=== PATIENT | male | born 1985 | race Caucasian/White ===

== ENCOUNTER 2022-11-11 08:04 | Emergency (ER) | payer OTHER, SELFPAY ==
[2022-11-11 08:11] VITALS: BP 144/89; PULSE 93; RESP 16; TEMP 36.8; O2SAT 100
--- NOTE | 2022-11-11 08:19 | ED.EYEPROB ---
HPI - Eye Problem General Chief complaint: Eye Problems Stated complaint: lt eye infection Time Seen by Provider: 11/11/22 08:26 Source: patient and RN notes reviewed Mode of arrival: ambulatory Limitations: no limitations History of Present Illness HPI Narrative: 37-year-old male presents concern for left eye itchiness, matting, green drainage that started on . Reports he has been using leftover antibiotic eyedrops from previous conjunctivitis without relief. He denies pain, vision changes. Reports he had a cold last week but those symptoms have resolved MD chief complaint: eye redness Related Data Home Medications Medication Instructions Recorded Confirmed polymyxin B sulfate 10,000 1 drp EACH EYE Q3H 11/11/22 11/11/22 unit-trimethoprim 1 mg/mL eye drops sertraline 25 mg tablet 25 mg PO DAILY 11/11/22 11/11/22 Allergies Allergy/AdvReac Type Severity Reaction Status Date / Time amoxicillin [From Amoxil] Allergy Unknown Verified 11/11/22 08:16 Review of Systems Review of Systems: CONSTITUTIONAL: Denies malaise, chills, sweats, or fever. EYES: Denies visual changes. Reports left eye redness, irritation, discharge. ENT: Denies rhinorrhea, congestion, sinus pain, otalgia or sore throat. SKIN: Denies rash or itching. NEUROLOGIC: Denies numbness, weakness, or headache. PSYCHIATRIC: Denies anxiety or depression. All systems reviewed & are unremarkable except as noted in HPI and below PMFSH Comments At time of signature, agree with nursing past medical, surgical, social and family history. There is no relevant family history pertinent to the presenting complaint Exam Narrative: GENERAL: Well-appearing, well-nourished, and in no acute distress. HEAD: Normocephalic, atraumatic. EYES: PERRLA, sclera clear, and EOMI. No nystagmus. Left sclera and conjunctivae injected. Mild left Upper and lower eyelid edema, right eyelids unremarkable, no periorbital edema noted ENT: Nares clear, turbinates pink, no rhinorrhea or epistaxis. Mucous membranes moist. TM pearly segal with sharp light reflex bilaterally; no tragal tenderness. NECK: Supple. CHEST: No respiratory distress. Speaks in full sentences. HEART: Regular rate and rhythm. SKIN: Warm, dry, no visible rash. NEURO: Alert and oriented x3. PSYCH: Normal mood and affect Course Course Emergency Course: Patient is aware of diagnosis, understands and agrees to treatment plan. Anticipatory guidance given. Patient agrees to follow-up as directed and is aware of reasons to seek care at the emergency department. Portions of this record may have been created with voice recognition software Level of Care: Express Care Visit Vital Signs Vital signs: Vital Signs Temperature 98.2 F 11/11/22 08:11 Pulse Rate 93 11/11/22 08:11 Respiratory Rate 16 11/11/22 08:11 Blood Pressure 144/89 H 11/11/22 08:11 Pulse Oximetry 100 11/11/22 08:11 Oxygen Delivery Room Air 11/11/22 08:11 Temperature 98.2 F 11/11/22 08:11 Pulse Rate 93 11/11/22 08:11 Respiratory Rate 16 11/11/22 08:11 Blood Pressure 144/89 H 11/11/22 08:11 Pulse Oximetry 100 11/11/22 08:11 Oxygen Delivery Room Air 11/11/22 08:11 Reviewed. MDM - Eye Problem MDM Narrative Medical decision making narrative: Consideration of the following conditions may be warranted for the presenting problem, they are not final diagnoses: Bacterial conjunctivitis, allergic conjunctivitis, viral conjunctivitis, foreign body, blepharitis, chalazion, hordeolum, corneal abrasion, preseptal cellulitis, orbital cellulitis. No evidence of proptosis, ophthalmoplegia, vision loss, pain with eye movement. Exam findings show no acute concerns or changes; patient is non-toxic appearing and is in no distress. Patient is appropriate for outpatient treatment and follow-up. Critical Care Time Critical Care Time Critical Care Time: No Discharge Plan Discharge Clinical Impression: Conjunctivitis
== END 2022-11-11 08:35 | disposition home or self-care (01) ==
PROVIDERS: Emergency Provider Nurse Practitioner; PCP Student in an Organized Health Care Education/Training Program
DX: H10.9 Unspecified conjunctivitis (principal); F41.9 Anxiety disorder, unspecified
CPT/HCPCS: 99213; G0463

== ENCOUNTER 2025-04-30 08:13 | Emergency (ER) | payer OTHER, SELFPAY ==
[2025-04-30 08:27] VITALS: BP 155/78; PULSE 111; RESP 16; TEMP 37; O2SAT 100
--- NOTE | 2025-04-30 09:40 | ED_ITS ---
HPI - URI/Sore Throat General Chief Complaint: Upper Respiratory Infection Stated Complaint: SINUS CONGESTION Time Seen by Provider: 04/30/25 08:25 Source: patient and RN notes reviewed Mode of arrival: ambulatory Limitations: no limitations History of Present Illness HPI Narrative: 39-year-old male presents Express Care complaining of sinus congestion, cough, drainage for proximally 3 weeks. Patient said his symptoms started to get better approximate 2 weeks ago and then stated the patient symptoms worsened have progressively gotten worse since. Patient reports having mucopurulent nasal drainage, right-sided sinus pressure, and cough. Patient denies any sore throat, chest pain, difficulty breathing, ear pain, or any other symptoms. Patient has been using Zyrtec and Flonase for symptom management with no relief. Related Data Home Medications ?Medication ?Instructions ?Recorded ?Confirmed ?Last Taken ?Type sertraline 25 mg tablet 25 mg PO DAILY 11/11/22 04/30/25 Unknown History Allergies Allergy/AdvReac Type Severity Reaction Status Date / Time amoxicillin (From Amoxil) Allergy Unknown Verified 04/30/25 08:25 Review of Systems Review of Systems: CONSTITUTIONAL: Denies fever, chills, body aches, or sweats. EYES: Denies visual changes, redness, or discharge. ENT: Positive sinus pressure, congestion negative for rhinorrhea, sore throat, or otalgia. CARDIOVASCULAR: Denies chest pain, palpitations, or edema. RESPIRATORY: Positive for cough. Negative for dyspnea. GASTROINTESTINAL: Denies abdominal pain, nausea, vomiting, or diarrhea. GENITOURINARY: Denies dysuria or hematuria. SKIN: Denies rash or itching. MUSCULOSKELETAL: Denies back pain, joint pain, or myalgia. NEUROLOGIC: Denies headache, numbness, or weakness. PSYCHIATRIC: Denies anxiety or depression. All other systems reviewed are negative, except as documented in HPI. PMFSH Comments At the time of my signature, I reviewed and agree with the nursing past medical, surgical, social, and family history. There is no relevant family history pertinent to the patient complaint. Exam Narrative: GENERAL: This is a well-nourished, well-developed adult, in no apparent distress. They are non ill-appearing, nontoxic appearing. HEAD: normocephalic, atraumatic. EYES: Sclera clear/white. Vision is grossly intact. Conjunctiva normal bilaterally. Extraocular movements intact. EARS: External ears normal, auditory canals clear and without drainage, TMs without erythema or perforation. Hearing grossly intact. NOSE: External nose normal with no obvious nasal discharge, nasal turbinates erythematous, no rhinorrhea. Right maxillary sinus tenderness to palpation. THROAT: Mucous membranes moist, posterior pharynx without redness or swelling. Uvula is midline. Postnasal drip present. NECK: Neck supple, non-tender without lymphadenopathy, masses or thyromegaly. CARDIOVASCULAR: Regular rate and rhythm without murmurs, gallops, or rubs. RESPIRATORY: Clear to auscultation. Breath sounds equal bilaterally. No wheezes, rales, or rhonchi. SKIN: warm, Dry, intact with no suspicious lesions or rash, good texture and turgor. NEURO: awake, alert, and oriented to person, place and time. There were no obvious focal neurologic abnormalities. EXTREMITIES: No joint tenderness, effusion, or edema noted. BACK: Nontender without deformity. Course Course Emergency Course: Portions of this record may have been created with voice recognition software Level of Care: Express Care Visit Vital Signs Vital signs: Vital Signs Temperature 98.6 F 04/30/25 08:27 Pulse Rate 111 H 04/30/25 08:27 Respiratory Rate 16 04/30/25 08:27 Blood Pressure 155/78 H 04/30/25 08:27 Pulse Oximetry 100 04/30/25 08:27 Temperature 98.6 F 04/30/25 08:27 Pulse Rate 111 H 04/30/25 08:27 Respiratory Rate 16 04/30/25 08:27 Blood Pressure 155/78 H 04/30/25 08:27 Pulse Oximetry 100 04/30/25 08:27 MDM - URI/Sore Throat MDM Narrative Medical decision making narrative: Given patient's symptoms likely he has a bacterial sinusitis. Will treat with doxycycline given patient's amoxicillin allergy. Discussed physical exam findings. Advised supportive measures and signs/symptoms to go to the ER. Pt is appropriate for outpt treatment and f/u. Differential Diagnosis Differential diagnosis: Likely upper respiratory infection, otitis media, sinusitis and viral infection Discharge Plan Discharge Clinical Impression: Sinusitis Qualifiers: Sinusitis location: unspecified location Chronicity: acute Recurrence: non- recurrent Qualified Code(s): J01.90 - Acute sinusitis, unspecified Patient Disposition: Home Condition: Stable Instructions: Antibiotic Form, Sinusitis (ED) Additional Instructions: Take the antibiotics as directed and complete the course even if you start to feel better. You may use a Neti pot saline rinse 3 times a day with lukewarm distilled water Continue to take Tylenol or Motrin for pain. Use a humidifier or vaporizer at night. Drink plenty of water. 8-10 glasses per day. Use flonase 2 times per day for 5 days then as needed Take mucinex 2 times per day and be sure to take with 8oz of water. Follow up with Primary provider in 3-5 days Please go to the ER if he develops any difficulty breathing, worsening symptoms, or any other concerns Patient Language: Turkish Prescriptions: New doxycycline monohydrate 100 mg capsule 100 mg PO BID 7 Days Qty: 14 0RF No Action sertraline 25 mg tablet 25 mg PO DAILY Follow-up/Referrals: Lana,DO Nawaf [Primary Care Provider] - Time of Disposition: 08:38
== END 2025-04-30 08:46 | disposition home or self-care (01) ==
PROVIDERS: PCP Student in an Organized Health Care Education/Training Program
DX: J01.90 Acute sinusitis, unspecified (principal)
CPT/HCPCS: 99213; G0463